=== PATIENT | male | born 1975 | race Caucasian/White ===

== ENCOUNTER 2024-07-02 05:31 | Day surgery (SDC) | payer OTHER ==
[2024-06-27 12:39] VITALS: BMI 37.6
[2024-07-02] MEDS ORDERED: BACITRACIN ZINC 15 GM TUBE TOPICAL OINTMENT ONE (13:12)
[2024-07-02] MEDS ORDERED: BUPIVACAINE HCL/PF 0.5% (5MG/ML) 10 ML VIAL ONE (13:12)
[2024-07-02] MEDS ORDERED: MIDAZOLAM HCL 2 MG/2 ML SINGLE DOSE VIAL ONE (13:35)
[2024-07-02] MEDS ORDERED: PROPOFOL 40 ML ONE (13:35)
[2024-07-02] MEDS: ceFAZolin SODIUM 1 GM VIAL IVPB ONE (13:46)
[2024-07-02] MEDS: BUPIVACAINE HCL/PF 0.5% (5 MG/ML) 30 ML VIAL IJ ONE (14:08)
[2024-07-02] MEDS: ONDANSETRON 4 MG/2 ML VIAL IVPUSH PRN (15:53)
[2024-07-02] MEDS ORDERED: ONDANSETRON 4 MG/2 ML VIAL ONE (15:54)
[2024-07-02 16:01] VITALS: BP 118/64; PULSE 77; RESP 20; TEMP 96.9
== END 2024-07-02 16:30 | disposition home or self-care (01) ==
LOC: JASU-SURG 05:31
PROVIDERS: ATTEND Urology
PROC: 0VB70ZZ Excision of Left Tunica Vaginalis, Open Approach (ICD-10-PCS; principal; 2024-07-02 13:30)
PROC: 0HBAXZZ Excision of Inguinal Skin, External Approach (ICD-10-PCS; 2024-07-02 13:30)
DX: N43.3 Hydrocele, unspecified (principal); L98.8 Other specified disorders of the skin and subcutaneous tissue
CPT/HCPCS: 88302-TC; 88304-TC; 94760